=== PATIENT | male | born 1930 | race Caucasian/White ===

== ENCOUNTER 2017-11-20 12:33 | Inpatient (IN) | payer OTHER, MEDICARE ==
[~2017-11-20] VITALS: Ht 182.9 cm; Wt 92.6 kg
[2017-11-20] MEDS ORDERED: ACETAMINOPHEN 325 MG TAB PO PRN (13:45)
[2017-11-20] MEDS ORDERED: ALUMINUM/MAGNESIUM/SIMETH 30 ML CUP PO PRN (13:45)
[2017-11-20] MEDS ORDERED: LORazepam 1 MG TAB PO PRN (13:45)
[2017-11-20] MEDS ORDERED: MAGNESIUM HYDROXIDE SUSP 30 ML CUP PO PRN (13:45)
[2017-11-20] MEDS ORDERED: LORazepam 2 MG/ML VIAL IM PRN (13:45)
[2017-11-20 14:00] VITALS: BP 124/84; PULSE 75; RESP 18; O2SAT 96
--- NOTE | 2017-11-20 14:12 | HHI.HP ---
Provisional Diagnosis Admission Date Welches I. Adjustment disorder with mixed disturbance of emotion and conduct Certification of Person's Competence To Provide Express and Informed Consent I have personally examined Clint Varma , a person being served at [facility] on, Nov 20, 2017 13:53. Express and informed consent means consent voluntarily given in writing, by a competent person, after sufficient explanation and disclosure of the subject matter involved to enable the person to make a knowing and willful decision without any element of force, fraud, deceit, duress, or other form of constraint or coercion. This person is 18 years of age or older, is not now known to be incompetent to consent to treatment with a guardian advocate, and does not have a health care surrogate or proxy currently making medical treatment decisions. I have found this person to be one of the following: [x] Competent to provide express and informed consent, as defined above, for voluntary admission to this facility and is competent to provide express and informed consent for treatment. He/she has the consistent capacity to make well reasoned, willful, and knowing decisions concerning his or her medical or mental health treatment. The person fully and consistently understands the purpose of the admission for examination/placement and is fully capable of personally exercising all rights assured under [place] Incompetent to provide express and informed consent to voluntary admission, and this is incompetent to provide express and informed consent to treatment. The person must be transferred to involuntary status and a petition for a guardian advocate filed with the Circuit Court. [] Refusing to provide express and informed consent to voluntary admission but is competent to provide express and informed consent for treatment. The person must be discharged or transferred to involuntary status. Form shall be completed within 24 hours of a person's arrival at the receiving facility and filed in the clinical record of each person: 1. Admitted on a voluntary basis 2. Permitted to provide express and informed consent to his/her own treatment 3. Allowed to transfer from involuntary to voluntary status 4. Prior to permitting a person to consent to his or her own treatment after having been previously found incompetent to consent to treatment. History of Present Illness Capacity: Has Capacity HPI This is an 86-year-old male who was Bowser acted by his physician at the [facility] outpatient clinic for depression and making suicidal remarks. According to the Bowser act, the patient, a , reported that he was "done" and that he planned to stop eating and drinking so that his body would shut down. The patient also reportedly had plans to call his children to get personal items (from the patient). The patient reportedly talked about multiple ways in which he could end his life. Upon interview, the patient provides a bizarre and inappropriate history of events. He started by saying he and his got into an argument last night and then became both tangential and circumstantial about her not wanting to watch Matheus O [place]stone on television, yelling at him to get seen at the [facility] , him going to bed and praying to God that it would be all right if he did not wake up the next day. He then explained how the [place] would starve himself to . He told this story to this physician 3 times and one time in front of the nurse. He discussed sleeping a lot in this process, waking up not eating much not drinking fluids at all, going back to sleep, etc. and that by the third day one would not wake up at all. 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 His was contacted and the patient also neglected to say he would not speak to her last night, he cried when he went to bed and that he said he was "done" and couldn't take it anymore, in front of her. He does not have a history of significant alcohol or drug use. Finally, he states he does not understand why he is here, despite his acknowledgment that he talked about his own with his [place] physician. Review of Systems Except as stated in HPI: all other systems reviewed are Neg Past Psych History Psychological trauma history Patient believes his is an undiagnosed bipolar. He denies any psychiatric issues or trauma. Violence risk - others (6 mos) Minimal Violence risk - self (6 mos) High Substance Abuse History Drugs/Alcohol past 12 months Denied Past Family Social History Coded Allergies: morphine (Verified Allergy, Unknown, 11/20/17) Family Psych History Positive for mood and anxiety issues. Social History Patient is retired and does not work. Obviously he is a . [facility] and this is how he injured his testicle. His reports that he is very gregarious, outgoing and active. She wanted him to go to the [place] for counseling. She is supportive and the patient reportedly has a supportive family. When asked where [place], [place] He apparently likes golf. However, he does report feeling he was "beaten down" by his last night. When asked about his children, he went off on another tangent about his 's mother, who is apparently living and in her 90s. Patient's Strengths (min. 2) Verbal and has access to healthcare. Physical Exam GENERAL: SKIN: Warm and dry. HEAD: Normocephalic. EYES: No scleral icterus. No injection or drainage. NECK: Supple, trachea midline. No JVD or lymphadenopathy. CARDIOVASCULAR: Regular rate and rhythm without murmurs, gallops, or rubs. RESPIRATORY: Breath sounds equal bilaterally. No accessory muscle use. GASTROINTESTINAL: Abdomen soft, non-tender, nondistended. MUSCULOSKELETAL: No cyanosis, or edema. BACK: Nontender without obvious deformity. No CVA tenderness. Mental Status Examination Appearance: Appropriate Consciousness: Alert Orientation: x4 Motor Activity: Normal gait Speech: Rapid Language: Adequate Fund of Knowledge: Adequate Memory: Unremarkable Mood: Other Affect: Other Thought Process & Associations: Circumstantial, Tangential Thought Content: Bizarre thinking, Preoccupations Hallucination Type: None Delusion Type: None Suicidal Ideation: Yes Suicidal Plan: Yes Suicidal Intention: No Homicidal Ideation: No Homicidal Plan: No Homicidal Intention: No Insight: Fair Judgment: Impulsive Assessment & Plan Problem List: (1) Adjustment disorder with mixed disturbance of emotions and conduct ICD Codes: F43.25 - Adjustment disorder with mixed disturbance of emotions and conduct Assessment & Plan Estimated LOS: days. 86-year-old male Niels acted by [facility] for making suicidal threats with a plan. Patient's presentation is at the very least, bizarre, and includes much tangential, circumstantial and inappropriate remarks. For multiple reasons, including the patient's age, marital discord, emotional lability including tearfulness and suicidal comments, physical infirmities, and inconsistent family support, he is felt to be at high risk for self-harm. It is not clear whether the patient suffers from depression, dementia or some other process which is causing or creating this circumstance. However, because of the patient's suicidal remarks, tearfulness, repeated exclamations that he is "done" and he "can't take it anymore", he is being admitted for further evaluation and treatment. This physician has ordered a CBC and comprehensive metabolic panel to determine if any infectious process or metabolic process is causing or contributing to his depression and suicidality. This physician also ordered a hospitalist consult to follow up on the patient's physical complaints and possible underlying organic problems which may be causing or contributing to his behavior. This physician ordered thyroid stimulating hormone levels, vitamin B- 12 levels and vitamin D levels as deficiencies in these areas may also contribute to his thinking, emotions and behavior. An occupational therapy consult was ordered to determine the patient's current functionality. An EKG was ordered to determine his cardiac conduction status prior to making significant changes in his medications, including psychotropic medicines, which might alter the electrical system of his heart adversely. This physician spoke with the patient's nurse, Quirino, who spoke with the patient's . The patient 's confirms his tearfulness last night, unwillingness to speak with her, as well as his remarks that he was unable to "take it anymore". The nurse also recognized the patient's perseveration regarding storytelling. Lastly, case management will be involved to assist with further information gathering and disposition planning. Nehemiah Ramires MD Nov 20, 2017 14:12
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
[2017-11-20 14:36] LABS: AUTOMATED NEUTROPHIL # 7.4 TH/MM3 (1.8-7.7); BASOPHIL % 0.2 % (0.0-2.0); EOSINOPHIL % 0.3 % (0.0-4.0); HEMOGLOBIN 16.5 GM/DL (13.0-17.0); LYMPH % 16.5 % (9.0-44.0); LYMPHOCYTE # 1.6 TH/MM3 (1.0-4.8); MEAN CORPUSCULAR HEMOGLOBIN 32.6 PG (27.0-34.0); MEAN CORPUSCULAR HGB CONC 34.3 % (32.0-36.0); MEAN PLATELET VOLUME 7.7 FL (7.0-11.0); MONO % 6.9 % (0.0-8.0); MONOCYTE # 0.7 TH/MM3 (0-0.9); NEUT % 76.1 % (16.0-70.0); PLATELET COUNT 241 TH/MM3 (150-450); RED BLOOD COUNT 5.06 MIL/MM3 (4.50-5.90); RED CELL DISTRIBUTION WIDTH 13.4 % (11.6-17.2); WHITE BLOOD COUNT 9.7 TH/MM3 (4.0-11.0)
[2017-11-20 15:03] LABS: ALBUMIN 4.4 GM/DL (3.4-5.0); AST (GOT) 26 U/L (15-37); BICARBONATE 28.3 MEQ/L (21.0-32.0); BLOOD UREA NITROGEN 22 MG/DL (7-18); CALCIUM 9.3 MG/DL (8.5-10.1); CHLORIDE 106 MEQ/L (98-107); CREATININE 1.26 MG/DL (0.60-1.30); GLOMERULAR FILTRATION RATE 55 ML/MIN (>89); GLUCOSE,RANDOM 99 MG/DL (74-106); SODIUM (NA) 139 MEQ/L (136-145)
[2017-11-20 15:06] LABS: ALKALINE PHOSPHATASE 126 U/L (45-117); ALT (GPT) 32 U/L (12-78); TOTAL PROTEIN 8.3 GM/DL (6.4-8.2)
--- NOTE | 2017-11-20 15:07 | RADRPT ---
EXAM DATE/TIME: 11/20/2017 14:47 [facility] COMPARISON: No previous studies available for comparison. INDICATIONS : Headache RADIATION DOSE: 32.10 CTDIvol (mGy) MEDICAL HISTORY : Renal failure, chronic. Cardiovascular disease SURGICAL HISTORY : None. ENCOUNTER: Initial ACUITY: 1 day PAIN SCALE: 4/10 LOCATION: cranial TECHNIQUE: Multiple contiguous axial images were obtained of the head. Using automated exposure control and adj ustment of the mA and/or kV according to patient size, radiation dose was kept as low as reasonably a chievable to obtain optimal diagnostic quality images. DICOM format image data is available electro nically for review and comparison. FINDINGS: CEREBRUM: The ventricles are normal for age. No evidence of midline shift, mass lesion, hemorrhage or acute in farction. No extra-axial fluid collections are seen. POSTERIOR FOSSA: The cerebellum and brainstem are intact. The 4th ventricle is midline. The cerebellopontine angle i s unremarkable. EXTRACRANIAL: The visualized portion of the orbits is intact. SKULL: The calvaria is intact. No evidence of skull fracture. CONCLUSION: Unremarkable evaluation; no evidence of acute infarct, hemorrhage, mass or edema. Turner Giron MD on November 20, 2017 at 15:04 Board Certified Radiologist. This report was verified electronically.
[2017-11-20 15:11] LABS: ACETAMINOPHEN LESS THAN 2.0 MCG/ML (10.0-30.0)
--- NOTE | 2017-11-20 16:21 | RADRPT ---
EXAM DATE/TIME: 11/20/2017 15:37 [facility] COMPARISON: No previous studies available for comparison. INDICATIONS : Left testicular pain and swelling. MEDICAL HISTORY : Arthritis. Thyroid disease. Afib. Male erectile dysfunction. Renal failure. Malignant melanoma. SURGICAL HISTORY : Total knee replacement. ENCOUNTER: Initial ACUITY: 3 days PAIN SCORE: 3/10 LOCATION: Bilateral scrotum. MEASUREMENTS: RIGHT TESTICLE: 3.7 x 2.5 x 1.3cm LEFT TESTICLE: 2.9 x 2.7 x 1.8cm FINDINGS: RIGHT TESTICLE: Small and heterogeneous. Intact color flow. Small varicocele and hydrocele. LEFT TESTICLE: Atrophic and heterogeneous. Intact color flow. Complex 2.5 cm mass in the inferior aspect of the scro piper which appears to be extratesticular, however a mass exophytic to the testicle cannot entirely be excluded. Moderate varicocele and hydrocele SCROTUM: Within normal limits. CONCLUSION: Exophytic versus extratesticular mass in the inferior left hemiscrotum Bilateral hydrocele and varicocele more prominent on the left than the right No evidence of testicular torsion Da Rascon MD on November 20, 2017 at 16:10 Board Certified Radiologist. This report was verified electronically.
[2017-11-20 18:13] VITALS: BP 128/85; PULSE 91; RESP 18; TEMP 97.2; O2SAT 96
[2017-11-20 18:18] VITALS: BP 128/85; PULSE 91; RESP 18; TEMP 97.2; O2SAT 96
[2017-11-21 06:00] VITALS: BP 114/62; PULSE 81; RESP 18; TEMP 97.6; O2SAT 95
[2017-11-21 07:59] LABS: AUTOMATED NEUTROPHIL # 3.5 TH/MM3 (1.8-7.7); BASOPHIL % 0.5 % (0.0-2.0); EOSINOPHIL # 0.2 TH/MM3 (0-0.4); EOSINOPHIL % 2.7 % (0.0-4.0); HEMATOCRIT 43.5 % (39.0-51.0); HEMOGLOBIN 14.9 GM/DL (13.0-17.0); LYMPH % 28.4 % (9.0-44.0); LYMPHOCYTE # 1.7 TH/MM3 (1.0-4.8); MEAN CELL VOLUME 94.7 FL (80.0-100.0); MEAN CORPUSCULAR HEMOGLOBIN 32.5 PG (27.0-34.0); MEAN CORPUSCULAR HGB CONC 34.3 % (32.0-36.0); MEAN PLATELET VOLUME 7.6 FL (7.0-11.0); MONO % 10.4 % (0.0-8.0); MONOCYTE # 0.6 TH/MM3 (0-0.9); PLATELET COUNT 190 TH/MM3 (150-450); RED CELL DISTRIBUTION WIDTH 13.4 % (11.6-17.2)
[2017-11-21 08:28] LABS: ALBUMIN 3.6 GM/DL (3.4-5.0); ALT (GPT) 27 U/L (12-78); AST (GOT) 20 U/L (15-37); BICARBONATE 25.9 MEQ/L (21.0-32.0); BLOOD UREA NITROGEN 29 MG/DL (7-18); CHLORIDE 106 MEQ/L (98-107); CHOLESTEROL 197 MG/DL (120-200); CREATININE 0.84 MG/DL (0.60-1.30); GLOMERULAR FILTRATION RATE 87 ML/MIN (>89); GLUCOSE,RANDOM 84 MG/DL (74-106); SODIUM (NA) 140 MEQ/L (136-145)
[2017-11-21 08:58] LABS: ALKALINE PHOSPHATASE 101 U/L (45-117); HDL CHOLESTEROL 65.6 MG/DL (40.0-60.0); LDL CHOLESTEROL 117 MG/DL (0-99); TOTAL BILIRUBIN ADULT 0.9 MG/DL (0.2-1.0); TOTAL PROTEIN 6.9 GM/DL (6.4-8.2); TRIGLYCERIDES 70 MG/DL (42-150)
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
[2017-11-21] MEDS: APIXABAN 5 MG TABLET PO SCH ×2 (12:00→20:50)
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
[2017-11-21] MEDS ORDERED: LORazepam 1 MG TAB PO PRN (13:45)
[2017-11-21] MEDS ORDERED: LORazepam 2 MG/ML VIAL IM PRN (13:45)
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
--- NOTE | 2017-11-21 16:41 | PD.TTN ---
Patient Problems 1. Discharge planning 2. Medication compliance 3. Knowledge deficit 4. Lack of coping skills Progress Toward Goals Provider Present: Dr. Hernán Sahu Provider Input: Patient is new on to the unit and will be monitored for medication regiment. Patient currently denies suicidal ideations but endorses some depression. Will observe for behavior Nurse(s) Input: Patient is cooperative and pleasant. Compliant with medications. Attending to ADLs and sleeping well. Psychiatric Counselors Present: LARS Flores Psych Therapist Input: Patient is connected with [place] and has a . Patient will be monitored on the unit for behavioral issues. Maribell Talbert Nov 21, 2017 16:41
[2017-11-21 16:50] LABS: HEMOGLOBIN A1C 5.3 % (4.3-6.0)
[2017-11-21 17:04] VITALS: BP 136/77; PULSE 84; RESP 18; TEMP 97.9; O2SAT 96
--- NOTE | 2017-11-21 22:13 | EKG ---
Date Performed: 11/21/2017 Time Performed: 08:15:45 PTAGE: 86 years EKG: ATRIAL FIBRILLATION MARKED LEFT AXIS DEVIATION MINIMAL ST DEPRESSION ABNORMAL ECG NO PREVIOUS TRACING DOCTOR: Himanshu Keller Interpretating Date/Time 11/21/2017 22:12:39
[2017-11-22] MEDS: APIXABAN 5 MG TABLET PO SCH ×2 (05:00→07:18)
[2017-11-22 05:41] VITALS: BP 133/76; PULSE 70; RESP 20; TEMP 97.4; O2SAT 97
[2017-11-22] MEDS ORDERED: APIX5TAB PO (08:53)
--- NOTE | 2017-11-22 09:02 | HHI.DS ---
Psychiatry Discharge Summary Inpatient Psychiatric care?: Yes Advance Directive: No Reason Not Provided: Due to Patient Condition Mental Health AdvanceDirective: No Health Care Proxy: No Admission Admission Date Nov 20, 2017 at 13:38 Admission Diagnosis: (1) Adjustment disorder with mixed disturbance of emotions and conduct ICD Code: F43.25 - Adjustment disorder with mixed disturbance of emotions and conduct Brief History This is an 86-year-old male who was Bowser acted by his physician at the [facility] outpatient clinic for depression and making suicidal remarks. According to the Bowser act, the patient, a , reported that he was "done" and that he planned to stop eating and drinking so that his body would shut down. The patient also reportedly had plans to call his children to get personal items (from the patient). The patient reportedly talked about multiple ways in which he could end his life. Upon interview, the patient provides a bizarre and inappropriate history of events. He started by saying he and his got into an argument last night and then became both tangential and circumstantial about her not wanting to watch Matheus Cannon on television, yelling at him to get seen at the [facility] , him going to bed and praying to God that it would be all right if he did not wake up the next day. He then explained how the [place] would starve himself to . He told this story to this physician 3 times and one time in front of the nurse. He discussed sleeping a lot in this process, waking up not eating much not drinking fluids at all, going back to sleep, etc. and that by the third day one would not wake up at all. He is now denying this was a plan for his own suicide yet he neglected to reveal to this physician that he told [facility] he wanted his children to slate picker his personal items. His was contacted and the patient also neglected to say he would not speak to her last night, he cried when he went to bed and that he said he was "done" and couldn't take it anymore, in front of her. He does not have a history of significant alcohol or drug use. Finally, he states he does not understand why he is here, despite his acknowledgment that he talked about his own with his [place] physician. Tobacco Use In Past 30 Days: No Tobacco Past 30 Days Alcohol Use: Never Hospital Course Patient is an 86-year-old man, , domicile of life, retired, , with no prior psychiatric history, no prior psychiatric diagnoses, hospitalizations, suicide attempts or self-injurious behavior, with a past medical history significant for A. fib, no history of substance use, who was brought in on a Bowser act by his physician at the [place] outpatient clinic due to suicidal remarks in the context of recent argument with a which she was transferred to the inpatient psychiatry for further evaluation and management. Patient was kept for further observation of mood and behavior, was noted to be calm and cooperative with staff. Patient attended to his ADLs, no behavioral dyscontrol, maintained stable mood and continued to deny any significant depressive symptoms nor any suicidal ideations. Patient during interview and interactions with staff was noted to be pleasant, future oriented, with no significant findings of imminent danger to self or others. Patient at this time does not meet criteria for further inpatient hospital stay and may continue outpatient follow up with his outpatient primary care physician. Patient was not started on any psychotropic medications as they were not indicated at this time. Collateral with patient's had reported not having any concerns for safety, nor any recent signs of significant depression and agreed to have patient return back home with continued support. Patient advised to continue outpatient follow up with his PCP for continuity of care as well as advised to call 911 or go to nearest ED in case of emergency. Patient and agreed with plan. Results Blood Pressure 133 / 76 Vital Signs Date Time Temp Pulse Resp B/P (MAP) Pulse Ox O2 Delivery O2 Flow Rate FiO2 11/22/17 05:41 97.4 70 20 133/76 (95) 97 11/20/17 14:00 Room Air Laboratory Tests Test 11/20/17 13:55 11/21/17 07:01 Neutrophils (%) (Auto) 76.1 % (16.0-70.0) Blood Urea Nitrogen 22 MG/DL (7-18) 29 MG/DL (7-18) Total Protein 8.3 GM/DL (6.4-8.2) Alkaline Phosphatase 126 U/L (45-117) Estimat Glomerular Filtration Rate 55 ML/MIN (>89) 87 ML/MIN (>89) Salicylates Level LESS THAN 1.7 MG/DL Acetaminophen Level LESS THAN 2.0 MCG/ML Monocytes (%) (Auto) 10.4 % (0.0-8.0) LDL Cholesterol 117 MG/DL (0-99) HDL Cholesterol 65.6 MG/DL (40.0-60.0) Vitamin B12 Level 1708 PG/ML (193-986) Laboratory Results Test 11/21/17 07:01 Cholesterol Level 197 MG/DL (120-200) HDL Cholesterol 65.6 MG/DL (40.0-60.0) Hemoglobin A1c 5.3 % (4.3-6.0) LDL Cholesterol 117 MG/DL (0-99) Triglycerides Level 70 MG/DL (42-150) Summary of Procedures None Imaging Last Impressions Scrotum Ultrasound 11/20/17 0000 Signed Impressions: Service Date/Time: Monday, November 20, 2017 15:37 - CONCLUSION: Exophytic versus extratesticular mass in the inferior left hemiscrotum Bilateral hydrocele and varicocele more prominent on the left than the right No evidence of testicular torsion Da Rascon MD Head CT 11/20/17 0000 Signed Impressions: Service Date/Time: Monday, November 20, 2017 14:47 - CONCLUSION: Unremarkable evaluation; no evidence of acute infarct, hemorrhage, mass or edema. Turner Giron MD Pending results at discharge: No Medications # of Antipsychotic meds at D/C: 0 Approp Antipsych med options 1 - Minimum of three failed multiple trials of monotherapy. 2 - Documented plan to taper to monotherapy due to previous use of multiple meds OR cross-taper in progress at D/C. 3 - Documentation of augmentation of Clozapine. 4 - Justification other than those listed in allowable values 1-3, document here : Discharge Discharge Date: Nov 22, 2017 Discharge Diagnosis: (1) Adjustment disorder with mixed disturbance of emotions and conduct ICD Code: F43.25 - Adjustment disorder with mixed disturbance of emotions and conduct Pt Condition on Discharge: Stable Discharge Disposition: Discharge Home Discharge Instructions Diet Instructions: Heart Healthy Diet Activities you can perform: Regular-No Restrictions Discharge Time > 30 minutes Mental Status Examination Appearance: Appropriate Consciousness: Alert Orientation: x4 Motor Activity: Normal gait Speech: Rapid Language: Adequate Fund of Knowledge: Adequate Attention and Concentration: Adequate Memory: Unremarkable Mood: Appropriate Affect: Appropriate Thought Process & Associations: Intact, Goal directed, Linear Thought Content: Appropriate Hallucination Type: None Delusion Type: None Suicidal Ideation: No Suicidal Plan: No Suicidal Intention: No Homicidal Ideation: No Homicidal Plan: No Homicidal Intention: No Insight: Adequate Judgment: Adequate Discharge/Advance Care Plan Health Problems: (1) Adjustment disorder with mixed disturbance of emotions and conduct Goals to promote your health * To prevent worsening of your condition and complications * To maintain your health at the optimal level Directions to meet your goals Take your medications as prescribed Follow your dietary instruction Follow activity as directed Keep your appointments as scheduled Take your immunizations and boosters as scheduled If your symptoms worsen call your PCP, if no PCP go to Urgent Care Center or Emergency Room For 24/ questions related to your inpatient stay or results of tests pending at discharge, please contact Dr. Adrian Sahu at Smoking is Dangerous to Your Health. Avoid second hand smoking Adrian Sahu MD Nov 22, 2017 09:02
== END 2017-11-22 10:20 | disposition home or self-care (01) | DRG 882 ==
LOC: NEPJ 12:33 → NEDA 13:38 → H260 17:52 → H4EA 11-21 17:41
PROVIDERS: ADMIT Student in an Organized Health Care Education/Training Program; ATTEND Student in an Organized Health Care Education/Training Program
DX: F43.25 Adjustment disorder with mixed disturbance of emotions and conduct (principal); I48.91 Unspecified atrial fibrillation; R45.851 Suicidal ideations; M19.90 Unspecified osteoarthritis, unspecified site; N18.9 Chronic kidney disease, unspecified; E03.9 Hypothyroidism, unspecified; N43.3 Hydrocele, unspecified; N50.0 Atrophy of testis; S30.22XA Contusion of scrotum and testes, initial encounter; F32.9 Major depressive disorder, single episode, unspecified; H91.90 Unspecified hearing loss, unspecified ear; Z96.659 Presence of unspecified artificial knee joint; Y93.17 Activity, water skiing and wake boarding; Z85.820 Personal history of malignant melanoma of skin
CPT/HCPCS: 70450; 76870; 80053; 80061; 80307; 82306; 82607; 83036; 84443; 85025; 93005; 93975; 99285